=== PATIENT | female | born 1940 ===

== ENCOUNTER → 2019-07-26 18:53 | Outpatient (ROUT) | payer MEDICARE, SELFPAY ==
[2019-07-26 20:04] LABS: Vitamin B12 889 pg/mL (239-931)
[2019-07-26 20:05] LABS: TSH w/ Reflex to FT4 3.08 uIU/mL (0.47-4.68)
== END ==
PROVIDERS: Visit Provider Internal Medicine
DX: G50.0 Trigeminal neuralgia (principal)
CPT/HCPCS: 82607; 84443